=== PATIENT | female | born 1960 | race African-American/Black ===

== ENCOUNTER 2024-02-05 13:13 | Inpatient (IN) | payer MEDICAID, OTHER ==
[~2024-02-05] VITALS: Ht 165.1 cm; Wt 82.8 kg
[2024-02-05] MEDS: MORPHINE SULFATE 4 MG/ML SYR/VIAL IV ONE (14:33)
[2024-02-05] MEDS: ONDANSETRON HCL 4 MG/2 ML VIAL IV ONE (14:34)
[2024-02-05 14:51] LABS: Basophils # (auto) 0.1 10 ^3/uL (0-0.2); Basophils % (auto) 0.6 % (0.0-2.0); Eosinophils # (auto) 0 10 ^3/uL (0-0.8); Hematocrit 40.6 % (36.0-46.0); Hemoglobin 13.5 g/dL (12.2-16.2); Lymphocytes # (auto) 1.2 10 ^3/uL (0.4-5.4); Lymphocytes % (auto) 8.3 % (10.0-50.0); Mean Corpuscular Hgb Conc. 33.4 g/dL (32.0-36.0); Mean Corpuscular Volume 92.8 fL (80.0-100.0); Monocytes # (auto) 0.5 10 ^3/uL (0-1.3); Monocytes % (auto) 3.2 % (0.0-12.0); Neutrophils # (auto) 12.8 10 ^3/uL (1.6-8.6); Neutrophils % (auto) 87.9 % (37.0-80.0); Red Blood Cells 4.37 10^6/uL (4.0-5.20); White Blood Cell 14.5 10^3/uL (4.4-10.8)
[2024-02-05 14:54] VITALS: PULSE 80; RESP 15; O2SAT 100
[2024-02-05 15:05] LABS: Chloride 106 mmol/L (98-107); Potassium 3.9 mmol/L (3.5-5.1); Sodium 141 mmol/L (136-145)
[2024-02-05 15:06] LABS: Anion Gap 12 (5-15); Carbon Dioxide 23 mmol/L (20-30)
[2024-02-05 15:07] LABS: Calcium 9.5 mg/dL (8.5-10.1)
[2024-02-05 15:11] LABS: Glucose 141 mg/dL (74-106)
[2024-02-05 15:12] LABS: BUN/Creatinine Ratio 18.3 (10.0-20.0); Blood Urea Nitrogen 15 mg/dL (9-23)
[2024-02-05] MEDS: IOHEXOL 300 MG/ML 100ML BOTTLE IJ ONE (15:48)
[2024-02-05] MEDS: metroNIDAZOLE 500MG/100ML 100 ML IV ONE (18:05)
[2024-02-05 19:40] VITALS: PULSE 78; RESP 16; O2SAT 98
[2024-02-05] MEDS ORDERED: MORPHINE SULFATE INJ 2 MG/ml SYRG IV PRN (21:00)
[2024-02-05] MEDS ORDERED: DEXTROSE (50%) 50ML SYRG IV PRN (21:00)
[2024-02-05] MEDS ORDERED: DOCUSATE SOD 100 MG CAP PO PRN (21:00)
[2024-02-05] MEDS ORDERED: NITROGLYCERIN 0.4 MG SL TAB SL PRN (21:00)
[2024-02-05] MEDS ORDERED: hydrALAZINE HCL 20 MG/ML VL IV PRN (21:00)
[2024-02-05] MEDS: cefTRIAXone 1GM/50ML D5W 50 ML IV ONE (21:34)
[2024-02-05] MEDS: SODIUM CHLORIDE 0.9% 1,000 ML IV SCH (21:35)
[2024-02-05] MEDS: MORPHINE SULFATE INJ 2 MG/ml SYRG IV PRN (21:35)
[2024-02-05] MEDS: ONDANSETRON HCL 4 MG/2 ML VIAL IV PRN (21:35)
[2024-02-05 23:23] VITALS: PULSE 85; RESP 16; O2SAT 100
[2024-02-05] MEDS: metroNIDAZOLE 500MG/100ML 100 ML IV SCH (23:28)
[2024-02-06] VITALS (8 sets, daily range): BP systolic 112–153; BP diastolic 49–65; PULSE 17–98; RESP 16–93; TEMP 96.8–98.6; O2SAT 93–99
[2024-02-06] MEDS: ACCU-CHEK COMFORT CURVE STRIP VI SCH (00:12)
[2024-02-06] MEDS ORDERED: LISI-285 PO (03:15)
[2024-02-06] MEDS: ACETAMINOPHEN 325 MG TAB PO PRN (05:08)
[2024-02-06 05:34] LABS: Basophils # (auto) 0 10 ^3/uL (0-0.2); Basophils % (auto) 0.3 % (0.0-2.0); Eosinophils # (auto) 0 10 ^3/uL (0-0.8); Eosinophils % (auto) 0.1 % (0.0-7.0); Hematocrit 37.5 % (36.0-46.0); Hemoglobin 12.5 g/dL (12.2-16.2); Lymphocytes # (auto) 2.8 10 ^3/uL (0.4-5.4); Lymphocytes % (auto) 24.6 % (10.0-50.0); Mean Corpuscular Hemoglobin 30.6 pg (28.0-32.0); Mean Corpuscular Hgb Conc. 33.3 g/dL (32.0-36.0); Mean Corpuscular Volume 91.9 fL (80.0-100.0); Monocytes # (auto) 0.8 10 ^3/uL (0-1.3); Monocytes % (auto) 7.1 % (0.0-12.0); Neutrophils # (auto) 7.7 10 ^3/uL (1.6-8.6); Neutrophils % (auto) 67.9 % (37.0-80.0); Red Blood Cells 4.08 10^6/uL (4.0-5.20); Red Cell Distribution Width 12.8 % (11.8-14.3); White Blood Cell 11.3 10^3/uL (4.4-10.8)
[2024-02-06 05:38] LABS: Albumin 3.7 g/dL (3.2-4.8); Alkaline Phosphatase 53 U/L (46-116); Anion Gap 6 (5-15); Aspartate Aminotransferase 9 U/L (13-40); BUN/Creatinine Ratio 11.5 (10.0-20.0); Bilirubin, Total 0.7 mg/dL (0.2-1.0); Blood Urea Nitrogen 10 mg/dL (9-23); Calcium 9.6 mg/dL (8.7-10.4); Carbon Dioxide 27 mmol/L (20-30); Chloride 107 mmol/L (98-107); Glucose 102 mg/dL (74-106); Potassium 3.6 mmol/L (3.5-5.1); Sodium 140 mmol/L (136-145); Total Protein 6.5 g/dL (5.7-8.2)
[2024-02-06 06:17] LABS: Alanine Aminotransferase < 9 U/L (7-40)
[2024-02-06] MEDS: PANTOPRAZOLE 40 MG/10 ML VIAL INJ IV SCH (10:57)
[2024-02-06] MEDS: hydroCHLOROthiazide 25 MG TAB PO SCH (10:59)
[2024-02-06] MEDS: cefTRIAXone 1GM/50ML D5W 50 ML IV SCH (11:00)
[2024-02-06] MEDS: LISINOPRIL 5 MG TAB PO SCH (11:00)
[2024-02-06] MEDS: HYDROcodone-ACET 5/325MG TAB PO PRN (11:16)
[2024-02-06] MEDS: DOCUSATE SOD 100 MG CAP PO ONE (15:11)
[2024-02-06] MEDS: MINERAL OIL 30 ML GT SCH (21:45)
[2024-02-06] MEDS: DOCUSATE SOD 100 MG CAP PO SCH (21:46)
[2024-02-07] VITALS (8 sets, daily range): BP systolic 109–173; BP diastolic 49–82; PULSE 76–97; RESP 16–20; TEMP 98.1–98.4; O2SAT 94–99
[2024-02-07] MEDS ORDERED: MINERAL OIL 30 ML GT SCH (22:00)
[2024-02-08 05:00] VITALS: BP 118/70; PULSE 75; RESP 18; TEMP 98.2; O2SAT 96
[2024-02-08 07:14] LABS: INR 1.08 (0.9-1.15); Partial Thromboplastin Time 31.2 SEC (24.5-34.5); Prothrombin Time 11.3 sec (9.3-11.8)
[2024-02-08 08:19] VITALS: BP 119/59; PULSE 73; RESP 18; TEMP 98.1; O2SAT 96
[2024-02-08] MEDS ORDERED: HYDR-5192 EX (11:22)
[2024-02-08] MEDS ORDERED: PSYL0.524 PO (11:22)
[2024-02-08] MEDS ORDERED: DOCU-265 PO (11:22)
[2024-02-08] MEDS ORDERED: TUCKS TOP (11:22)
[2024-02-08 11:27] LABS: Urine Bacteria FEW /hpf (None Seen); Urine Blood Negative /uL (Negative); Urine Clarity Clear (Clear); Urine Color Yellow (Yellow); Urine Hyaline Cast FEW /lpf (0 - 2); Urine Mucus FEW (None Seen); Urine Protein, UAD Negative (Negative); Urine Specific Gravity 1.021 (1.001-1.035); Urine Urobilinogen Normal (Negative); Urine WBC 3 /hpf (0 - 5); Urine pH 5.5 (5.0-9.0)
[2024-02-08] MEDS: WITCH HAZEL-GLYCERIN PAD TOP PRN (12:00)
[2024-02-08 12:19] VITALS: BP 129/75; PULSE 72; RESP 17; TEMP 98; O2SAT 99
== END 2024-02-08 16:26 | disposition home or self-care (01) | DRG 254 ==
LOC: ER 13:13 → EDBD 13:13 → OVERFLOW 21:02 → WEST WING 23:07
PROVIDERS: ADMIT Nurse Practitioner Family; ATTEND Internal Medicine Geriatric Medicine
DX: K62.89 Other specified diseases of anus and rectum (principal); I10 Essential (primary) hypertension; K52.9 Noninfective gastroenteritis and colitis, unspecified; K64.4 Residual hemorrhoidal skin tags; K56.41 Fecal impaction; K64.5 Perianal venous thrombosis; Z96.651 Presence of right artificial knee joint
CPT/HCPCS: 36415; 71045; 74177; 80048; 80053; 81001; 82962; 85025; 85610; 85730; 86850; 86900; 86901; 93005; 96365; 96368; 96375; 96376; C9113; G0378; J2405; J3490

== ENCOUNTER 2025-02-03 11:47 | Emergency (ER) | payer MEDICAID ==
[~2025-02-03] VITALS: Ht 165.1 cm; Wt 81.6 kg
[~2025-02-03 11:47] MED LIST: DOCU-265 PO; HYDR-5192 EX; LISI-285 PO; PSYL0.524 PO; TUCKS TOP
[2025-02-03 11:50] VITALS: BP 166/108; RESP 20; TEMP 98.2; O2SAT 98
--- NOTE | 2025-02-03 11:52 | ECG ---
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
[2025-02-03] MEDS ORDERED: ASPirin 81 mg TAB PO ONE (12:00)
--- NOTE | 2025-02-03 12:17 | ED.PDOC ---
History of Present Illness HPI Comments 64 y/o overweight F, with a history of HTN, presents with c/o nonradiating, sternal chest pain, today. Patient endorses on having persisting symptoms for over the past 2x days, following initial unprovoked onset. She comments on pain being pressure-like in quality, that worsens with deep inspiration, and, te mporarily, relieves when in a rested, standing position. Upon arrival to ED, patient was also found with a blood pressure of 166/108. She reports taking her Lisinopril 1x/day and not taking it, this morning, prior to arrival, with a history of mixed compliancy. Patient denies any palpitations, shortness of breath, dizziness, nausea, vomiting, fever, chills, or other associated symptoms or modifiers at this time. Chief Complaint: Chest Pain Time Seen by MD: 11:45 Primary Care Provider: UNKNOWN Reviewed Notes: Nurses Notes, Medications, Allergies Allergies: Coded Allergies: NO KNOWN ALLERGIES (Unverified , 02/05/24) Home Meds Active Scripts Hydrocortisone (Topical) (Preparation H) 1 % Cre, 1 % EX DAILY for 30 Days, #30 GM Prov:LUPE MERIDA MD 02/08/24 Psyllium (Metamucil) 0.36 Gm Cap, 0.36 GM PO DAILY for 30 Days, #10.8 GRAMS Prov:LUPE MERIDA MD 02/08/24 Witch Dianne-Glycerin (Tucks) 1 Pad Pd, 1 PAD TOP QIDP PRN for 30 Days, #30 PAD Prov:LUPE MERIDA MD 02/08/24 Docusate Sodium (Docusate Sodium) 100 Mg Cap, 100 MG PO BID for 30 Days, #60 CAP Prov:LUPE MERIDA MD 02/08/24 Reported Medications Lisinopril & Hydrochlorothiazi (Lisinopril/Hydrochlorothi) 1 Tab Tab, 10-12.5 MG PO 02/06/24 Information Source: Patient Mode of Arrival: Ambulatory Severity: Moderate Timing: Days Duration: Since onset Prehospital treatment: None Past Medical History PAST MEDICAL HISTORY: HTN Surgical History: Hysterectomy Surgical History (Other): right-knee replacement surgery 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 Family History Family History: Reviewed,noncontributory to illness Social History Smoker: Non-Smoker Alcohol: Occasionally Drugs: Denies Drug Use Lives In: Home Constitutional: denies: chills, diaphoresis, fatigue, fever, malaise, sweats, weakness, others EENTM: denies: blurred vision, double vision, ear bleeding, ear discharge, ear drainage, ear pain, ear ringing, eye pain, eye redness, hearing loss, mouth pain, mouth swelling, nasal discharge, nose bleeding, nose congestion, nose pain, photophobia, tearing, throat pain, throat swelling, voice changes, others Respiratory: denies: cough, hemoptysis, orthopnea, SOB at rest, shortness of breath, SOB with excertion, stridor, wheezing, others Cardiovascular: reports: chest pain; denies: dizzy spells, diaphoresis, Dyspnea on exertion, edema, irregular heart beat, left arm pain, lightheadedness, palpitations, PND, syncope, others Gastrointestinal: denies: abdomen distended, abdominal pain, blood streaked bowels, constipated, diarrhea, dysphagia, difficulty swallowing, hematemesis, melena, nausea, poor appetite, poor fluid intake, rectal bleeding, rectal pain, vomiting, others Genitourinary: denies: abnormal vagina bleeding, burning, dyspareunia, dysuria, flank pain, frequency, hematuria, incontinence, pain, , vagina discharge, urgency, others Neurological: denies: dizziness, fainting, headache, left sided numbness, left sided weakness, numbness, paresthesia, pre-existing deficit, right sided numbness, right sided weakness, seizure, speech problems, tingling, tremors, weakness, others Musculoskeletal: denies: back pain, gout, joint pain, joint swelling, muscle pain, muscle stiffness, neck pain, others Integumetry: denies: bruises, change in color, change in hair/nails, dryness, laceration, lesions, lumps, rash, wounds, others Allergic/Immunocompromised: denies: Difficulty Healing, Frequent Infections, Hives, Itching, others Hematologic/Lymphatic: denies: anemia, blood clots, easy bleeding, easy bruising, swollen glands, others Endocrine: denies: excessive hunger, excessive sweating, excessive thirst, excessive urination, flushing, intolerance to cold, intolerance to heat, unexplained weight gain, unexplained weight loss, others Psychiatric: denies: anxiety, bipolar disorder, depression, hopeless, panic disorder, schizophrenia, sleepless, suicidal, others All Other Systems: Reviewed and Negative Physical Exam General Appearance: Moderate Distress HEENT: Normal ENT Inspection, Pharynx Normal, TMs Normal Neck: Full Range of Motion, Non-Tender, Normal, Normal Inspection Respiratory: Chest Non-Tender, Lungs Clear, No Accessory Muscle Use, No Respiratory Distress, Normal Breath Sounds Cardiovascular: No Edema, No JVD, No Murmur, No Gallop, Normal Peripheral Pulses, Regular Rate/Rhythm Breast Exam: Deferred Gastrointestinal: No Organomegaly, Non Tender, No Pulsatile Mass, Normal Bowel Sounds, Soft Genitalia: Deferred Pelvic: Deferred Rectal: Deferred Extremities: No calf tenderness, Normal capillary refill, Normal inspection, Normal range of motion, Non-tender, No pedal edema Musculoskeletal : Apperance: Normal Neurologic: 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 Was a procedure done?: No EKG EKG : Pulse Rate (adult): 100 [place]: Normal Cardiac Rhythm: ST Block: None Hypertrophy: None ST: Normal Differential Dx Considerations may include: AL, PE, ACS, URI, PNA, viral syndrome, anxiety, angina, hypertension, musculoske letal pain, gastritis, among others X-Ray, Labs, Meds, VS Vital Signs Date Time Temp Pulse Resp B/P (MAP) Pulse Ox O2 Delivery O2 Flow Rate FiO2 02/03/25 12:17 100 02/03/25 11:51 101 02/03/25 11:50 98.2 110 20 166/108 (127) 98 98.2 Lab Test 02/03/25 12:46 02/03/25 11:54 Range/Units Troponin I High Sensitivity Pending 11 </=34 ng/L White Blood Count 8.0 4.4-10.8 10^3/uL Red Blood Count 4.85 4.0-5.20 10^6/uL Hemoglobin 15.4 12.2-16.2 g/dL Hematocrit 45.4 36.0-46.0 % Mean Corpuscular Volume 93.6 80.0-100.0 fL Mean Corpuscular Hemoglobin 31.7 28.0-32.0 pg Mean Corpuscular Hemoglobin Concent 33.8 32.0-36.0 g/dL Red Cell Distribution Width 13.3 11.8-14.3 % Platelet Count 409 140-450 10^3/uL Mean Platelet Volume 8.0 6.9-10.8 fL Neutrophils (%) (Auto) 46.7 37.0-80.0 % Lymphocytes (%) (Auto) 44.3 10.0-50.0 % Monocytes (%) (Auto) 6.2 0.0-12.0 % Eosinophils (%) (Auto) 2.1 0.0-7.0 % Basophils (%) (Auto) 0.7 0.0-2.0 % Neutrophils # (Auto) 3.7 1.6-8.6 10 ^3/uL Lymphocytes # (Auto) 3.5 0.4-5.4 10 ^3/uL Monocytes # (Auto) 0.5 0-1.3 10 ^3/uL Eosinophils # (Auto) 0.2 0-0.8 10 ^3/uL Basophils # (Auto) 0.1 0-0.2 10 ^3/uL Nucleated Red Blood Cells 0.1 % D-Dimer, Quantitative Pending Sodium Level 144 136-145 mmol/L Potassium Level 4.4 3.5-5.1 mmol/L Chloride Level 109 H 98-107 mmol/L Carbon Dioxide Level 28 20-31 mmol/L Anion Gap 7 5-15 Blood Urea Nitrogen 13 9-23 mg/dL Creatinine 0.93 0.550-1.02 mg/dL Glomerular Filtration Rate Calc 69 >90 mL/min BUN/Creatinine Ratio 14.0 10.0-20.0 Serum Glucose 118 H 74-106 mg/dL Calcium Level 10.5 H 8.7-10.4 mg/dL Patient's CBC is within normal limits The chemistry panel is within normal limits. The patient was calcium level is elevated at 10.5 At this time, the patient was being admitted to the hospitalist The chest x-ray shows: No sign of any abnormalities The patient was diagnosis is acute myocardial ischemia Images Reviewed?: Images reviewed and evaluated by me Time of 1ST Reevaluation: 12:15 Reevaluation 1ST: Unchanged Patient Education/Counseling: Diagnosis, Treatment, Prognosis Family Education/Counseling: No Family Present Departure 1 Departure Time of Disposition: 13:08 Impression: Primary Impression: Acute myocardial ischemia Disposition: 09 ADMITTED INPATIENT Admit to: Tele Condition: Fair Critical Care Note Critical Care Time?: No Stability Stability form required: Yes Unstable for transfer: Telemetry monitoring (Telemetry monitoring required), ED Physician Assesment (Clinical assesment) Heart Score Heart Score: Heart Score Response (Comments) Value History Moderate Suspicious 1 EKG Normal 0 Age 45-64 1 Risk Factors 1 or 2 risk factors 1 Troponin Normal limit 0 Total 3 I personally scribed for PAVEL PICKETT MD ([email or web address]) on 02/03/25 at 12:17. Electronically submitted by Red Daniels ([email or web address]). PAVEL PICKETT MD Feb 03, 2025 12:17
--- NOTE | 2025-02-03 12:40 | DVH ---
XY CHEST TWO VIEWS ROUTINE CLINICAL HISTORY: bmp COMPARISON: None TECHNIQUE: Frontal and lateral view of the chest was obtained FINDINGS: Lines and Tubes: None Lungs: No focal consolidation. Pleura: No effusion. No pneumothorax. Cardiomediastinal contours: Unremarkable Bones: No acute osseous abnormality. IMPRESSION: No acute cardiopulmonary disease.
[2025-02-03 12:44] LABS: Basophils # (auto) 0.1 10 ^3/uL (0-0.2); Basophils % (auto) 0.7 % (0.0-2.0); Eosinophils # (auto) 0.2 10 ^3/uL (0-0.8); Eosinophils % (auto) 2.1 % (0.0-7.0); Hematocrit 45.4 % (36.0-46.0); Hemoglobin 15.4 g/dL (12.2-16.2); Lymphocytes # (auto) 3.5 10 ^3/uL (0.4-5.4); Lymphocytes % (auto) 44.3 % (10.0-50.0); Mean Corpuscular Hemoglobin 31.7 pg (28.0-32.0); Mean Corpuscular Hgb Conc. 33.8 g/dL (32.0-36.0); Mean Corpuscular Volume 93.6 fL (80.0-100.0); Monocytes # (auto) 0.5 10 ^3/uL (0-1.3); Monocytes % (auto) 6.2 % (0.0-12.0); Neutrophils # (auto) 3.7 10 ^3/uL (1.6-8.6); Neutrophils % (auto) 46.7 % (37.0-80.0); Nucleated Red Blood Cells % 0.1 %; Platelet Count (auto) 409 10^3/uL (140-450); Red Blood Cells 4.85 10^6/uL (4.0-5.20); Red Cell Distribution Width 13.3 % (11.8-14.3)
[2025-02-03 12:47] LABS: Potassium 4.4 mmol/L (3.5-5.1); Sodium 144 mmol/L (136-145)
[2025-02-03 12:48] LABS: Anion Gap 7 (5-15); Carbon Dioxide 28 mmol/L (20-31)
[2025-02-03 12:49] LABS: Calcium 10.5 mg/dL (8.7-10.4); Chloride 109 mmol/L (98-107)
[2025-02-03 12:53] VITALS: PULSE 73
[2025-02-03 12:53] LABS: Blood Urea Nitrogen 13 mg/dL (9-23); Glucose 118 mg/dL (74-106)
--- NOTE | 2025-02-03 12:54 | ECG ---
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
--- NOTE | 2025-02-03 14:03 | DVHINCON2 ---
Date Seen: Feb 03, 2025 Referring Physician Emergency medicine physician History of Present Illness 64 y/o overweight F, with a history of HTN, presents with c/o nonradiating, sternal chest pain, today. Patient endorses on having persisting symptoms for over the past 2x days, following initial unprovoked onset. She comments on pain being pressure-like in quality, that worsens with deep inspiration, and, temporarily, relieves when in a rested, standing position. Upon arrival to ED, patient was also found with a blood pressure of 166/108. She reports taking her Lisinopril 1x/day and not taking it, this morning, prior to arrival, with a history of mixed compliancy. Patient denies any palpitations, shortness of breath, dizziness, nausea, vomiting, fever, chills, or other associated symptoms or modifiers at this time. 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 Allergies: Coded Allergies: NO KNOWN ALLERGIES (Unverified , 02/05/24) Home Meds Active Scripts Hydrocortisone (Topical) (Preparation H) 1 % Cre, 1 % EX DAILY for 30 Days, #30 GM Prov:LUPE MERIDA MD 02/08/24 Psyllium (Metamucil) 0.36 Gm Cap, 0.36 GM PO DAILY for 30 Days, #10.8 GRAMS Prov:LUPE MERIDA MD 02/08/24 Witch Dianne-Glycerin (Tucks) 1 Pad Pd, 1 PAD TOP QIDP PRN for 30 Days, #30 PAD Prov:LUPE MERIDA MD 02/08/24 Docusate Sodium (Docusate Sodium) 100 Mg Cap, 100 MG PO BID for 30 Days, #60 CAP Prov:LUPE MERIDA MD 02/08/24 Reported Medications Lisinopril & Hydrochlorothiazi (Lisinopril/Hydrochlorothi) 1 Tab Tab, 10-12.5 MG PO 02/06/24 Vital Signs Vital Signs Date Time Temp Pulse Resp B/P (MAP) Pulse Ox O2 Delivery O2 Flow Rate FiO2 02/03/25 12:53 73 02/03/25 11:50 98.2 20 166/108 (127) 98 98.2 Physical Exam 64 years old woman, well nourished well developed. No apparent distress HEENT-atraumatic normocephalic Heart-regular rate and rhythm Lungs clear to auscultate Abdomen soft nontender nondistended Musculoskeletal-no edema cyanosis Neuro-AO x3, no focal deficits Labs/Diagnostic Data Labs Test 02/03/25 12:46 02/03/25 11:54 Range/Units Troponin I High Sensitivity 12 </=34 ng/L White Blood Count 8.0 4.4-10.8 10^3/uL Red Blood Count 4.85 4.0-5.20 10^6/uL Hemoglobin 15.4 12.2-16.2 g/dL Hematocrit 45.4 36.0-46.0 % Mean Corpuscular Volume 93.6 80.0-100.0 fL Mean Corpuscular Hemoglobin 31.7 28.0-32.0 pg Mean Corpuscular Hemoglobin Concent 33.8 32.0-36.0 g/dL Red Cell Distribution Width 13.3 11.8-14.3 % Platelet Count 409 140-450 10^3/uL Mean Platelet Volume 8.0 6.9-10.8 fL Neutrophils (%) (Auto) 46.7 37.0-80.0 % Lymphocytes (%) (Auto) 44.3 10.0-50.0 % Monocytes (%) (Auto) 6.2 0.0-12.0 % Eosinophils (%) (Auto) 2.1 0.0-7.0 % Basophils (%) (Auto) 0.7 0.0-2.0 % Neutrophils # (Auto) 3.7 1.6-8.6 10 ^3/uL Lymphocytes # (Auto) 3.5 0.4-5.4 10 ^3/uL Monocytes # (Auto) 0.5 0-1.3 10 ^3/uL Eosinophils # (Auto) 0.2 0-0.8 10 ^3/uL Basophils # (Auto) 0.1 0-0.2 10 ^3/uL Nucleated Red Blood Cells 0.1 % D-Dimer, Quantitative 0.27 0.0-0.49 mg/L FEU Sodium Level 144 136-145 mmol/L Potassium Level 4.4 3.5-5.1 mmol/L Chloride Level 109 H 98-107 mmol/L Carbon Dioxide Level 28 20-31 mmol/L Anion Gap 7 5-15 Blood Urea Nitrogen 13 9-23 mg/dL Creatinine 0.93 0.550-1.02 mg/dL Glomerular Filtration Rate Calc 69 >90 mL/min BUN/Creatinine Ratio 14.0 10.0-20.0 Serum Glucose 118 H 74-106 mg/dL Calcium Level 10.5 H 8.7-10.4 mg/dL Assessment Chest pain rule out ACS Plan/Recommendation Chest pain intermittent, but persistent EKG shows sinus rhythm without significant ST segment changes Discussed with patient regarding checking echo of the heart to rule out abnormal heart motion Patient states she has responsibility at home and will not stay in the hospital Patient will sign AMA Recommended the patient to see a accounts payable manager since possible for possible cardiomyopathy Full code Cardiac diet Lovenox for DVT prophylaxis No GI prophylaxis needed Plan discussed with: Patient Date of Service: Feb 03, 2025 Billing Provider: GILBERTO HERNANDES MD Common Visit Codes: CONSULT ONLY Consultation Codes: [id number] CONSULT <45MIN GILBERTO HERNANDES MD Feb 03, 2025 14:03
== END 2025-02-03 16:32 | disposition left against medical advice (07) ==
LOC: ER 11:56
DX: I25.9 Chronic ischemic heart disease, unspecified (principal); I10 Essential (primary) hypertension; Z90.710 Acquired absence of both cervix and uterus; Z96.651 Presence of right artificial knee joint
CPT/HCPCS: 36415; 71046; 80048; 84484; 85025; 85379; 93005